=== PATIENT | female | born 1955 | race Caucasian/White ===

== ENCOUNTER 2018-04-02 11:33 | Observation (INO) | payer OTHER ==
[2018-04-02 12:49] LABS: ADD MAN DIFF? NO; BASOPHILS % 0.2 % (0.0-2.0); EOSINOPHILS % 0.1 % (0.0-7.0); HEMATOCRIT 34.1 % (37.0-47.0); HEMOGLOBIN 10.3 g/dl (12.0-16.0); LYMPHOCYTES # 1.8 10^3/ul (0.8-2.9); LYMPHOCYTES % 18.3 % (15.0-51.0); MEAN CORPUSCULAR HEMOGLOBIN 26.8 pg (29.0-33.0); MEAN CORPUSCULAR HGB CONC 30.2 g/dl (32.0-37.0); MEAN CORPUSCULAR VOLUME 88.8 fl (82.0-101.0); MEAN PLATELET VOLUME 9.2 fl (7.4-10.4); MONOCYTE # 0.7 10^3/ul (0.3-0.9); MONOCYTES % 6.8 % (0.0-11.0); NEUTROPHIL # 7.1 10^3/ul (1.6-7.5); NEUTROPHILS % 74.1 % (39.0-77.0); PLATELET COUNT 507 10^3/UL (140-415); RED BLOOD COUNT 3.84 10^6/ul (4.20-5.40); RED CELL DISTRIBUTION WIDTH 20.3 % (11.5-14.5)
[2018-04-02 12:49] LABS: WHITE BLOOD COUNT 9.6 10^3/ul (4.8-10.8)
[2018-04-02 13:06] LABS: ALANINE AMINOTRANSFERASE 20 IU/L (13-69); ALBUMIN 3.5 g/dl (3.3-4.9); ALKALINE PHOSPHATASE 128 IU/L (42-121); ANION GAP 15 (8-16); ASPARTATE AMINO TRANSFERASE 22 IU/L (15-46); BILIRUBIN,INDIRECT 0.2 mg/dl (0-1.1); BILIRUBIN,TOTAL 0.2 mg/dl (0.2-1.3); BLOOD UREA NITROGEN 6 mg/dl (7-20); CALCIUM 9.9 mg/dl (8.4-10.2); CARBON DIOXIDE 24 mmol/L (21-31); CHLORIDE 102 mmol/L (97-110); CREATININE 0.68 mg/dl (0.44-1.00); GLUCOSE 108 mg/dl (70-220); POTASSIUM 4.2 mmol/L (3.5-5.1); SODIUM 137 mmol/L (135-144)
[2018-04-02 13:08] LABS: INR 1.04; PROTIME 13.7 Sec (11.9-14.9); PT RATIO 1.1
[2018-04-02 13:09] LABS: PARTIAL THROMBOPLASTIN TIME 36.5 Sec (25.0-35.0)
[2018-04-02 13:11] LABS: LACTIC ACID 1.5 mmol/L (0.5-2.0)
[2018-04-02 13:18] LABS: TROPONIN-I < 0.012 ng/ml (0.000-0.120)
[2018-04-02] MEDS: IOHEXOL 100 ML (13:48)
[2018-04-02] MEDS: SOD CHLORIDE 0.9% 100 ML (13:49)
[2018-04-02] MEDS: ASPIRIN 81 MG TAB PO (14:49)
[2018-04-02] MEDS ORDERED: MAGNESIUM HYDROXIDE 30ML CUP PO (15:00)
[2018-04-02] MEDS ORDERED: morphine 2 MG INJ IV (15:00)
[2018-04-02] MEDS ORDERED: ACETAMINOPHEN 325 MG TAB PO ×2 (15:00)
[2018-04-02] MEDS ORDERED: DEXTROSE 50% 50 ML SYRINGE IV ×2 (15:00)
[2018-04-02] MEDS ORDERED: ACETAMINOPHEN 650 MG SUPP PR (15:00)
[2018-04-02] MEDS ORDERED: ONDANSETRON 4 MG INJ IV ×2 (15:00)
[2018-04-02] MEDS ORDERED: NACL 0.9% 3 ML SYG IV (15:00)
[2018-04-02] MEDS ORDERED: HYDROCODONE/APAP (5/325) TAB PO (15:00)
[2018-04-02] MEDS ORDERED: GLUCOSE GEL 15 GRAM TUBE PO ×2 (15:00)
[2018-04-02] MEDS ORDERED: GLUCAGON 1 MG INJ IM (15:00)
[2018-04-02] MEDS ORDERED: GLUCOSE GEL 15 GRAM TUBE BUCCAL (15:00)
[2018-04-02] MEDS ORDERED: BISACODYL 10 MG SUPP PR (15:00)
[2018-04-02] MEDS ORDERED: DOCUSATE SODIUM 100 MG CAP PO (15:00)
[2018-04-02] MEDS ORDERED: ALBUTEROL/IPRATROPIUM (NEB) 3 ML AMP HHN (16:30)
[2018-04-02] MEDS: LEVOFLOXACIN 500MG/D5W (PMX) 100 ML IVPB (17:19)
[2018-04-02] MEDS: INSULIN ASPART [NOVOLOG] 3 ML PEN SC ×2 (20:15→21:00)
[2018-04-02] MEDS: LEVETIRACETAM 500 MG TAB PO (21:03)
[2018-04-02] MEDS: ATORVASTATIN 20 MG TAB PO (21:03)
[2018-04-02] MEDS: CALCIUM CARBONATE 1.25 GM TAB PO (21:04)
[2018-04-02] MEDS: DEXAMETHASONE 1 MG TAB PO (22:25)
[2018-04-03] MEDS: HYDROCODONE/APAP (5/325) TAB PO ×2 (00:06→08:24)
[2018-04-03] MEDS: ACCU-CHEK XX (02:00)
[2018-04-03] MEDS: PANTOPRAZOLE 40 MG INJ IV (06:03)
[2018-04-03] MEDS: LEVOTHYROXINE 150 MCG TAB PO (06:03)
[2018-04-03] MEDS ORDERED: NON-FORMULARY/PATIENT OWN MED (Omeprazole* 20 MG) PO (07:00)
[2018-04-03] MEDS: INSULIN ASPART [NOVOLOG] 3 ML PEN SC (07:55)
[2018-04-03] MEDS: LISINOPRIL 20 MG TAB PO (08:24)
[2018-04-03] MEDS: LEVETIRACETAM 500 MG TAB PO (08:26)
[2018-04-03] MEDS: AMLODIPINE 10 MG TAB PO (08:26)
[2018-04-03] MEDS: DEXAMETHASONE 1 MG TAB PO (08:26)
[2018-04-03] MEDS: ASPIRIN 81 MG TAB PO (08:26)
[2018-04-03] MEDS: CALCIUM CARBONATE 1.25 GM TAB PO (08:26)
[2018-04-03] MEDS: FUROSEMIDE 20 MG INJ IV (08:26)
[2018-04-03] MEDS: INSULIN GLARGINE [LANtus] 3 ML PEN SC (08:28)
[2018-04-03 08:58] LABS: ADD MAN DIFF? NO
[2018-04-03 09:12] LABS: WHITE BLOOD COUNT 9.5 10^3/ul (4.8-10.8)
[2018-04-03 09:12] LABS: BASOPHILS % 0.1 % (0.0-2.0); HEMATOCRIT 30.7 % (37.0-47.0); HEMOGLOBIN 9.3 g/dl (12.0-16.0); LYMPHOCYTES # 1.4 10^3/ul (0.8-2.9); LYMPHOCYTES % 14.6 % (15.0-51.0); MEAN CORPUSCULAR HEMOGLOBIN 26.7 pg (29.0-33.0); MEAN CORPUSCULAR HGB CONC 30.3 g/dl (32.0-37.0); MEAN CORPUSCULAR VOLUME 88.2 fl (82.0-101.0); MEAN PLATELET VOLUME 10.6 fl (7.4-10.4); MONOCYTE # 0.4 10^3/ul (0.3-0.9); MONOCYTES % 4.3 % (0.0-11.0); NEUTROPHIL # 7.7 10^3/ul (1.6-7.5); NEUTROPHILS % 80.7 % (39.0-77.0); PLATELET COUNT 414 10^3/UL (140-415); RED BLOOD COUNT 3.48 10^6/ul (4.20-5.40); RED CELL DISTRIBUTION WIDTH 20.3 % (11.5-14.5)
[2018-04-03 09:15] LABS: HEMOGLOBIN A1C 6.1 % (0-5.9)
[2018-04-03 09:38] LABS: ALANINE AMINOTRANSFERASE 16 IU/L (13-69); ALBUMIN 3.2 g/dl (3.3-4.9); ALBUMIN/GLOBULIN RATIO 0.94; ALKALINE PHOSPHATASE 112 IU/L (42-121); ANION GAP 16 (8-16); ASPARTATE AMINO TRANSFERASE 19 IU/L (15-46); BILIRUBIN,INDIRECT 0.3 mg/dl (0-1.1); BILIRUBIN,TOTAL 0.3 mg/dl (0.2-1.3); BLOOD UREA NITROGEN 6 mg/dl (7-20); CALCIUM 9.4 mg/dl (8.4-10.2); CARBON DIOXIDE 22 mmol/L (21-31); CHLORIDE 105 mmol/L (97-110); CHOL/HDL RATIO 3.3 RATIO; CHOLESTEROL 105 mg/dl (100-200); CREATININE 0.66 mg/dl (0.44-1.00); GLUCOSE 153 mg/dl (70-220); HDL CHOLESTEROL 31 mg/dl (35-98); LDL CHOLESTEROL,CALCULATED 54 mg/dl; MAGNESIUM 1.7 mg/dl (1.7-2.5); POTASSIUM 4.5 mmol/L (3.5-5.1); SODIUM 138 mmol/L (135-144); TOTAL PROTEIN 6.6 g/dl (6.1-8.1); TRIGLYCERIDES 98 mg/dl (0-149)
[2018-04-03 13:13] LABS: FREE THYROXINE INDEX (Calc) 2.98 ug/ml (0.65-3.89); T4 (THYROXINE) 7.1 ug/dl (5.5-11.0)
== END 2018-04-03 12:00 | disposition home or self-care (01) ==
LOC: E/R 11:33 → TEL 14:36
PROVIDERS: Hospitalist
DX: C64.9 Malignant neoplasm of unspecified kidney, except renal pelvis (principal); C78.00 Secondary malignant neoplasm of unspecified lung; C79.31 Secondary malignant neoplasm of brain; I10 Essential (primary) hypertension; E11.9 Type 2 diabetes mellitus without complications; E03.9 Hypothyroidism, unspecified; D63.0 Anemia in neoplastic disease; H40.9 Unspecified glaucoma; Z79.82 Long term (current) use of aspirin; Z79.84 Long term (current) use of oral hypoglycemic drugs; Z83.3 Family history of diabetes mellitus
CPT/HCPCS: 36415; 71045; 71275; 80053; 80061; 82962; 83036; 83605; 83735; 84100; 84436; 84443; 84479; 84484; 85025; 85610; 85730; 87040; 93005; 93306; 96374; 99285-25; G0378